=== PATIENT | male | born 1975 | race American Indian/Alaskan Native ===

== ENCOUNTER 2017-01-16 17:48 | Emergency (ER) | payer SELFPAY ==
[2017-01-16 17:56] VITALS: BMI 36.3
[2017-01-16 18:01] VITALS: TEMP 99.3
--- NOTE | 2017-01-16 18:10 | ED PDOC ---
Arrival/HPI - General Chief Complaint: Shortness Of Breath Time Seen by Provider: 01/16/17 18:09 Historian: Patient, Spouse - History of Present Illness Narrative History of Present Illness (Text): 01/16/17 18:09 This 41 yo male with pmh asthma, tobacco use, alcohol dependence, presents to this ED c/o right sided chest wall pain x 4 days. Patient stated pain has worsen today. Pain worsen with deep inspiration and movement. Denies sob, wheezing, rash, recent travel, recent trauma, recent medical procedure, leg swelling, blood disorder, calf pain, weakness, paresthesias, or abnormal gait. PERC negative for PE Time/Duration: Other (see hpi) Context: Home Past Medical History - Provider Review Nursing Documentation Reviewed: Yes - Infectious Disease Hx of Infectious Diseases: None - Pulmonary Hx Asthma: Yes - Psychiatric Hx Substance Use: No Family/Social History - Physician Review Nursing Documentation Reviewed: Yes Family/Social History: Other (non-contributory) Smoking Status: Current Some Days Smoker Hx Alcohol Use: Yes Frequency of alcohol use: Socially Hx Substance Use: No Allergies/Home Meds Allergies/Adverse Reactions: Allergies No Known Allergies Allergy (Verified 01/16/17 17:56) Review of Systems - Review of Systems Constitutional: Normal. absent: Fatigue, Weight Change, Fevers, Night Sweats Eyes: Normal ENT: Normal Respiratory: Normal. absent: SOB, Cough Cardiovascular: Chest Pain (chest wall pain, right). absent: Palpitations, Edema, Calf Pain, JIMENEZ, Orthopnea, Syncope Gastrointestinal: Normal. absent: Abdominal Pain, Nausea, Vomiting Genitourinary Male: Normal. absent: Dysuria, Frequency, Hematuria Musculoskeletal: Normal Skin: Normal. absent: Rash Neurological: Normal. absent: Headache, Dizziness, Focal Weakness, Gait Changes , Speech Changes, Facial Droop, Disequilibrium, Seizure Endocrine: Normal Hemo/Lymphatic: Normal Psychiatric: Normal Physical Exam Vital Signs Temp Pulse Resp BP Pulse Ox 01/16/17 21:22 61 16 177/108 H 99 01/16/17 20:00 68 16 154/116 H 98 01/16/17 18:27 19 97 01/16/17 17:49 99.3 F 79 18 183/117 H 97 Temperature: Afebrile Blood Pressure: Normal Pulse: Regular Respiratory Rate: Normal Appearance: Positive for: Well-Appearing, Non-Toxic, Comfortable Pain Distress: None Mental Status: Positive for: Alert and Oriented X 3 - Systems Exam Head: Present: Atraumatic, Normocephalic Pupils: Present: PERRL Extroacular Muscles: Present: EOMI Conjunctiva: Present: Normal Mouth: Present: Moist Mucous Membranes Neck: Present: Normal Range of Motion Respiratory/Chest: Present: Clear to Auscultation, Good Air Exchange, Tender to Palpation (mild tenderness right lateral mid rib area. No skin rash, swelling or ecchymosis). No: Respiratory Distress, Accessory Muscle Use Cardiovascular: Present: Regular Rate and Rhythm, Normal S1, S2. No: Murmurs Abdomen: Present: Normal Bowel Sounds. No: Tenderness, Distention, Peritoneal Signs Back: Present: Normal Inspection Upper Extremity: Present: Normal Inspection. No: Cyanosis, Edema Lower Extremity: Present: Normal Inspection. No: Edema Neurological: Present: GCS=15, CN II-XII Intact, Speech Normal Skin: Present: Warm, Dry, Normal Color. No: Rashes Psychiatric: Present: Alert, Oriented x 3, Normal Insight, Normal Concentration Medical Decision Making ED Course and Treatment: 01/16/17 21:13 Re-evaluation. Patient feels better. Discussed results and plan with patient who expresses understanding. All questions answered and there is agreement with the plan to discharge home with instructions. Patient stable for discharge. Return if symptoms persist or worsen Lungs CTA b/l. No wheezing or rhonchi. Patient feels well, and he wishes to be discharged home. Patient noted he had been lifting boxes at work. Re-evaluation Time: 21:13 Reassessment Condition: Re-examined, Improved - Lab Interpretations Lab Results: 01/16/17 18:40 01/16/17 18:40 Lab Results 01/16/17 18:40: Sodium 143, Potassium 3.8, Chloride 102, Carbon Dioxide 31, Anion Gap 14, BUN 10, Creatinine 0.8, Est GFR ( Amer) > 60, Est GFR (Non- Af Amer) > 60, Random Glucose 82, Calcium 9.7, Total Bilirubin 0.5, AST 35, ALT 46, Alkaline Phosphatase 83, Lactate Dehydrogenase 442, Total Creatine Kinase 404 H, CK-MB (CK-2) 1.8, CK-MB (CK-2) % Cancelled, Troponin I < 0.01, Total Protein 8.1, Albumin 4.6, Globulin 3.5, Albumin/Globulin Ratio 1.3, Lipase 52 01/16/17 18:40: WBC 8.8, RBC 5.37, Hgb 16.0, Hct 44.9, MCV 83.6, MCH 29.8, MCHC 35.6, RDW 12.6, Plt Count 295, MPV 10.8, Gran % 59.7, Lymph % (Auto) 30.2, [place] % (Auto) 8.2 H, Eos % (Auto) 1.7, Baso % (Auto) 0.2, Gran # 5.24, Lymph # 2.7, [place] # 0.7 H, Eos # 0.2, Baso # 0.02 I have reviewed the lab results: Yes Interpretation: No clinic. lab abnormalty - RAD Interpretation Narrative RAD Interpretations (Text): 01/16/17 21:13 Chest x-rays: NAD Radiology Orders: 01/16/17 18:11 CHEST TWO VIEWS (PA/LAT) [RAD] Stat - Medication Orders Current Medication Orders: Discontinued Medications Ketorolac Tromethamine (Toradol) 15 mg IVP STAT STA Stop: 01/16/17 18:13 Last Admin: 01/16/17 18:55 Dose: 15 mg Ondansetron HCl (Zofran Inj) 4 mg IVP STAT STA Stop: 01/16/17 19:38 Last Admin: 01/16/17 19:58 Dose: Not Given Non-Admin Reason: Patient Refused Disposition/Present on Arrival - Present on Arrival Any Indicators Present on Arrival: No History of DVT/PE: No History of Uncontrolled Diabetes: No Urinary Catheter: No History of Decub. Ulcer: No History Surgical Site Infection Following: None - Disposition Have Diagnosis and Disposition been Completed?: Yes Diagnosis: Chest wall pain, Hypertension Disposition: HOME/ ROUTINE Disposition Time: 21:14 Patient Plan: Discharge Condition: GOOD Discharge Instructions (ExitCare): Hypertension (ED), Chest Wall Pain (ED) Additional Instructions: Call private doctor for follow up visit in 1-2 days. Take medication as instructed with food. YOU NEED TO SEE YOUR DOCTOR TO HAVE YOUR BLOOD PRESSURE RECHECK IN 1-2 DAYS. HIGH BLOOD PRESSURE CAN CAUSE SEVERE ORGAN DAMAGE IF LEFT UNTREATED. Return to emergency if you develop headache, dizziness, or worsen symptoms. Prescriptions: traMADol [Ultram] 50 mg PO TID PRN #10 tab PRN Reason: Pain, Severe (8-10) Referrals: [facility], [Non-Staff] - Follow up with primary [facility] [Outside] - Follow up with primary [facility] [Outside] - Follow up with primary Forms: [employer] (Faroese), WORK NOTE
[2017-01-16 18:55] LABS: BASO # 0.02 K/mm3 (0.0-2.0); BASO % 0.2 % (0.0-3.0); EOS # 0.2 (0.0-0.7); EOS % 1.7 % (1.5-5.0); GRAN # 5.24 (1.4-6.5); GRAN % 59.7 % (50.0-68.0); HEMATOCRIT 44.9 % (42.0-52.0); LYMPH # 2.7 (1.2-3.4); LYMPH % 30.2 % (22.0-35.0); MEAN CELL VOLUME 83.6 fl (80.0-105.0); MEAN CORPUSCULAR HEMOGLOBIN 29.8 pg (25.0-35.0); MEAN CORPUSCULAR HGB CONC 35.6 g/dl (31.0-37.0); MEAN PLATELET VOLUME 10.8 fl (7.0-11.0); MONO # 0.7 (0.1-0.6); MONO % 8.2 % (1.0-6.0); RED CELL DISTRIBUTION WIDTH 12.6 % (11.5-14.5); WHITE BLOOD COUNT 8.8 10^3/ul (4.5-11.0)
[2017-01-16 19:09] LABS: ALB/GLOB RATIO 1.3 (1.1-1.8); ALKALINE PHOSPHATASE 83 U/L (38-126); ALT/SGPT 46 U/L (7-56); AST/SGOT 35 U/L (17-59); BILIRUBIN,TOTAL 0.5 mg/dL (0.2-1.3); BLOOD UREA NITROGEN 10 mg/dL (7-21); CALCIUM 9.7 mg/dL (8.4-10.5); CARBON DIOXIDE 31 mmol/L (21-33); CHLORIDE 102 mmol/L (98-107); GFR AFRICAN-AMERICAN > 60; GLUCOSE,RANDOM 82 mg/dL (70-110); LIPASE 52 U/L (23-300); POTASSIUM 3.8 mmol/L (3.6-5.0); SODIUM 143 mmol/L (132-148); TOTAL PROTEIN 8.1 g/dL (5.8-8.3)
[2017-01-16 19:28] LABS: TROPONIN I < 0.01 ng/mL
[2017-01-16 21:22] VITALS: RESP 16
[2017-01-16 21:23] VITALS: BP 177/108; PULSE 61; O2SAT 99
--- NOTE | 2017-01-17 07:38 | RAD ---
HISTORY: right sided pleuritic CP COMPARISON: No prior. TECHNIQUE: Chest PA and lateral FINDINGS: LUNGS: No active pulmonary disease. PLEURA: No significant pleural effusion identified. No pneumothorax apparent. CARDIOVASCULAR: Normal. OSSEOUS STRUCTURES: No significant abnormalities. VISUALIZED UPPER ABDOMEN: Normal. OTHER FINDINGS: None. IMPRESSION: No active disease.
--- NOTE | 2017-01-18 00:25 | CARD ---
APPROVED REPORT EKG Measurement Heart [id number] [place] [id number] <Conclusion> Normal sinus rhythm Nonspecific T wave abnormality Abnormal ECG
== END 2017-01-16 21:35 | disposition home or self-care (01) ==
LOC: ED 17:48
DX: R07.89 Other chest pain (principal); I10 Essential (primary) hypertension
CPT/HCPCS: 71020; 80053; 82550; 82553; 83615; 83690; 84484; 85025; 96374; 99284; J1885